=== PATIENT | female | born 1935 | race Caucasian/White ===

== ENCOUNTER → 2024-07-28 14:39 | Outpatient (REF) | payer MEDICARE, OTHER, SELFPAY | LOC: HWRAD 14:39 | PROVIDERS: ATTENDING PHYSICIAN Student in an Organized Health Care Education/Training Program; FAMILY PHYSICIAN Family Medicine; REFERRING PHYSICIAN Nuclear Medicine Nuclear Cardiology | DX: J06.9 Acute upper respiratory infection, unspecified (principal) | CPT/HCPCS: 71046 ==

== ENCOUNTER → 2024-08-10 13:02 | Outpatient (REF) | payer MEDICARE, OTHER, SELFPAY | LOC: HWRAD 13:02 | PROVIDERS: ATTENDING PHYSICIAN Student in an Organized Health Care Education/Training Program | DX: Z87.01 Personal history of pneumonia (recurrent) (principal) | CPT/HCPCS: 71046 ==

== ENCOUNTER → 2024-10-05 11:47 | Outpatient (REF) | payer MEDICARE, OTHER, SELFPAY | LOC: HWRCS 11:47 | PROVIDERS: ATTENDING PHYSICIAN Nuclear Medicine Nuclear Cardiology; FAMILY PHYSICIAN Family Medicine | DX: I48.0 Paroxysmal atrial fibrillation (principal); I25.10 Atherosclerotic heart disease of native coronary artery without angina pectoris; I50.32 Chronic diastolic (congestive) heart failure; Z87.01 Personal history of pneumonia (recurrent) | CPT/HCPCS: 71046; 93306 ==

== ENCOUNTER 2025-01-23 18:23 | Emergency (ER) | payer MEDICARE, OTHER, SELFPAY ==
[2025-01-23 18:28] VITALS: BP 200/73
[2025-01-23 21:25] VITALS: BP 174/90
[2025-01-23 21:27] VITALS: BMI 22.6
--- NOTE | 2025-01-23 21:34 | ED.MUSCINJ ---
HPI-Injury
General
Chief Complaint: Fall
Source: patient
Exam Limitations: none
Time Seen by Provider: 01/23/25 20:56
History of Present Illness-Injury
Initial Injury comments:
89-year-old female on [place] presents after trip and fall. She missed the last step going into the basement. She may have hit her chin but she also complains of left shoulder and right knee pain. She was noted to have a laceration to the right
knee as well. No other complaints at this time
Past History
Past History
ED Past Medical History: Arrthythmia (Atrial fibrillation) and HTN; Negative IDDM, NIDDM or TX
ED Past Surgical History: Gynecological and Orthopedic
Patient has exhibited threatening behavior?: No
PSI?: No
Social History
Tobacco: Former smoker
Alcohol: None
Drug: None
Personal:
Living: with family
Employment: Retired
Family History
Family History: Other (Noncontributory)
Phy Exam
Physical Exam
Physical Exam:
General: Well-appearing female no acute respiratory distress
HEENT: Normocephalic contusion noted to the undersurface of the chin pupils equal round reactive to light
Heart: Regular rate and rhythm no murmurs
Lungs: Clear no wheeze
Musculoskeletal exam: Left shoulder is diffusely tender no deformity. Right knee is tender anteriorly. No deformities able to straight leg raise right leg
Skin: Six centimeter laceration over the anterior lateral aspect of the right knee
Injury Course
Orders/Labs/Results
Orders:
Orders
01/23/25 18:32
CT Head W/o Iv Contrast Urgent
Comment:
Reason For Exam: fall hit left side of head. denies loc
01/23/25 21:29
CR Knee- Right 4 Or More View* Urgent
Comment:
Reason For Exam: fall
CR Shoulder, Trauma - Left Urgent
Comment:
Reason For Exam: fall
MDM/Problems Addressed
Differential Diagnosis Includes:
Fall with head strike on blood thinner. Concern for skull fracture versus intracranial hemorrhage versus contusion. CT of the head was ordered through triage which I have personally reviewed and is negative. There is a laceration with discomfort
to the anterior right knee. X-ray pending of the right knee and left shoulder
*Critical Care Note
Total Time (30-74mins, 75-104mins- exclusive of procedures): Not Applicable
Update Note
Update Note:
X-ray right knee negative for fracture. X-ray left shoulder possible cortical disruption of the tuberosity seen on 1 view. This also could be degenerative change. Will recommend ibuprofen or Tylenol for the pain. The wound on the knee was
irrigated copiously with saline anesthetized in a local fashion using 1% lidocaine with epinephrine. 4-0 Prolene sutures were used in a running fashion to provide wound edge approximation and hemostasis. 15 sutures were required to do so. Adaptic
gauze and a gauze wrap was applied to the wound. Wound care instructions were given. Stable for discharge
ED Attending Note
-
Portions of this chart may have been created with voice recognition software.� Occasional wrong word or��sound alike� substitutions may have occurred due to the inherent limitations of voice recognition software.
Discharge Plan
Departure
Patient Disposition: Home (Routine Discharge)
Date of Disposition: 01/23/25
Time of Disposition: 23:11
Patient with high blood pressure during this ER visit?: No
Discharge Problem:
Laceration
Instructions: Laceration Repair With Stitches (DC)
Prescriptions:
No Action
citalopram 10 MG tablet
10 mg PO HS
Align (B.infantis) 4 MG capsule
4 mg PO DAILY
cetirizine 10 MG tablet
10 mg PO DAILY PRN (Reason: allergies)
albuterol sulfate 1 PUFF HFA aerosol inhaler
2 puff inhalation R Q4HPRN PRN (Reason: WHEEZE)
fluticasone propionate 1 SPRAY spray,suspension
1 spray intranasal DAILY PRN (Reason: allergies)
PreserVision AREDS-2 1 EACH capsule
1 cap PO BID
valsartan 40 MG tablet
40 mg PO DAILY
Tylenol Arthritis
1,300 mg PO Q12
Women's Daily Caplet
1 tab PO DAILY
metoprolol succinate [Toprol XL] 25 MG tablet extended release 24 hr
12.5 mg PO DAILY
famotidine 20 MG tablet
20 mg PO QPM
amiodarone [Pacerone] 200 MG tablet
200 mg PO HS
alum-mag hydroxide-simeth [Mag-Al Plus] 30 ML suspension
30 ml PO Q4HPRN PRN (Reason: INDIGESTION) 0RF
clopidogrel 75 mg tablet
75 mg PO DAILY
pantoprazole 20 mg tablet,delayed release (DR/EC)
20 mg PO DAILY
levothyroxine 50 mcg tablet
50 mcg PO DAILY
rosuvastatin 40 mg tablet
40 mg PO QPM
Xarelto 15 mg tablet
15 mg PO QPM
cyanocobalamin (vitamin B-12) 1,000 MCG tablet
1,000 mcg PO DAILY
amoxicillin-pot clavulanate 875-125 mg tablet
1 tab PO BID Qty: 6 0RF
Rx Instructions:
start 8AM
furosemide 20 mg Tablet
20 mg PO DAILY Qty: 30 0RF
Referrals:
NONE,* [Family Provider] -
Activity Restrictions/Additional Instructions:
Have sutures removed in 2 weeks. You may ice for the next day to the sore spots. Use Tylenol for pain. Return if worse otherwise follow-up with your doctor
Interventions
Interventions:
*Risk Screen - Suicide Last Done: 01/23/25 18:28
*General Assessment Last Done: 01/23/25 21:28
*Neglect/Abuse Screening Last Done: 01/23/25 18:28
*ED COVID-19 Vaccine History Last Done: 01/23/25 21:28
ED-Musculoskeletal Assessment Last Done: 01/23/25 21:26
ED- Neurological Assessment Last Done: 01/23/25 21:26
ED-Skin Assessment Last Done: 01/23/25 21:26
Discharge Date and Time
Print Language: [id number]
== END 2025-01-23 23:22 | disposition home or self-care (01) ==
LOC: EMR 18:23
PROVIDERS: EMERGENCY PHYSICIAN Emergency Medicine
DX: S81.011A Laceration without foreign body, right knee, initial encounter (principal); S00.83XA Contusion of other part of head, initial encounter; M25.512 Pain in left shoulder; W01.0XXA Fall on same level from slipping, tripping and stumbling without subsequent striking against object, initial encounter; I48.91 Unspecified atrial fibrillation; I10 Essential (primary) hypertension; Z79.01 Long term (current) use of anticoagulants; Z87.891 Personal history of nicotine dependence
CPT/HCPCS: 12002; 99284; 70450; 73030; 73564

== ENCOUNTER → 2025-10-16 14:43 | Outpatient (REF) | payer MEDICARE, OTHER, SELFPAY | LOC: HWRAD 14:43 | PROVIDERS: ATTENDING PHYSICIAN Nuclear Medicine Nuclear Cardiology; FAMILY PHYSICIAN Family Medicine | DX: I48.0 Paroxysmal atrial fibrillation (principal); I10 Essential (primary) hypertension; J44.9 Chronic obstructive pulmonary disease, unspecified; I50.9 Heart failure, unspecified | CPT/HCPCS: 71046 ==